=== PATIENT | male | born 1990 | race Caucasian/White ===

== ENCOUNTER 2019-01-30 18:19 | Emergency (ER) | payer SELFPAY ==
[2019-01-30] MEDS ORDERED: HYDROCODONE/APAP 7.5/325 MG TAB ONE (19:11)
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
== END 2019-01-30 20:02 | disposition home or self-care (01) ==
LOC: ER 18:19
DX: S13.4XXA Sprain of ligaments of cervical spine, initial encounter (principal); G89.11 Acute pain due to trauma; V59.50XA Passenger in pick-up truck or van injured in collision with unspecified motor vehicles in traffic accident, initial encounter; F17.210 Nicotine dependence, cigarettes, uncomplicated; I25.2 Old myocardial infarction
CPT/HCPCS: 70450; 72125; 99284